=== PATIENT | female | born 1995 | race Caucasian/White ===

== ENCOUNTER 2017-04-29 00:23 | Emergency (ER) | payer SELFPAY ==
[2017-04-29 00:28] VITALS: BP 140/93
== END 2017-04-29 00:45 | disposition left against medical advice (07) ==
LOC: ED 00:23
DX: R19.7 Diarrhea, unspecified (principal); Z53.21 Procedure and treatment not carried out due to patient leaving prior to being seen by health care provider

== ENCOUNTER 2017-06-04 17:19 | Emergency (ER) | payer SELFPAY ==
[2017-06-04 18:03] VITALS: BP 120/70
--- NOTE | 2017-06-04 22:27 | Emergency Department Report ---
ED Female HPI - General Chief complaint: Urogenital-Female Stated complaint: VAGINAL PAIN Time Seen by Provider: 06/04/17 21:23 Source: patient Mode of arrival: Ambulatory Limitations: No Limitations - History of Present Illness Initial comments: This is a 21-year-old female presents to ED complaining of vulvar lesion and irritation 2 days. Patient states 2 days ago she noticed an ulcer type on her labia. Patient states that she can put some bacitracin ointment on it gently extended redder. She states also his slightly itching. She says that since her period 05 19 2017. She denies vaginal discharge, vaginal bleeding, vaginal reduction dysuria, fever, nausea vomiting. - Related Data Previous Rx's Medication Instructions Recorded Last Taken Type Bacitracin/Pramoxine/Aloe Vera 1 applicatio TP TID #1 tube 06/04/17 Unknown Rx [Bacitraycin Plus Ointment] Allergies Allergy/AdvReac Type Severity Reaction Status Date / Time No Known Allergies Allergy Unverified 04/29/17 00:33 ED Review of Systems ROS: Stated complaint: VAGINAL PAIN Other details as noted in HPI Constitutional: denies: chills, fever Eyes: denies: eye pain, eye discharge, vision change ENT: denies: ear pain, throat pain Respiratory: denies: cough, shortness of breath, wheezing Cardiovascular: denies: chest pain, palpitations Endocrine: no symptoms reported Gastrointestinal: denies: abdominal pain, nausea, diarrhea Genitourinary: denies: urgency, dysuria, discharge Musculoskeletal: denies: back pain, joint swelling, arthralgia Skin: denies: rash, lesions Neurological: denies: headache, weakness, paresthesias Psychiatric: denies: anxiety, depression Hematological/Lymphatic: denies: easy bleeding, easy bruising ED Past Medical Hx - Past Medical History Previous Medical History?: Yes Additional medical history: Vagina pain - Surgical History Past Surgical History?: No - Social History Smoking Status: Never Smoker Substance Use Type: None - Medications Home Medications: Home Medications Medication Instructions Recorded Confirmed Last Taken Type Bacitracin/Pramoxine/Aloe Vera 1 applicatio TP TID #1 tube 06/04/17 Unknown Rx [Bacitraycin Plus Ointment] ED Physical Exam - General Limitations: No Limitations General appearance: alert, in no apparent distress - Head Head exam: Present: atraumatic, normocephalic - Eye Eye exam: Present: normal appearance - ENT ENT exam: Present: mucous membranes moist - Neck Neck exam: Present: normal inspection - Respiratory Respiratory exam: Present: normal lung sounds bilaterally. Absent: respiratory distress - Cardiovascular Cardiovascular Exam: Present: regular rate, normal rhythm. Absent: systolic murmur, diastolic murmur, rubs, gallop - GI/Abdominal GI/Abdominal exam: Present: soft, normal bowel sounds - External exam: Present: lesions (on left labia majora, non bleeding, non ulcerative). Absent: erythema, swelling, lacerations, ecchymosis - Extremities Exam Extremities exam: Present: normal inspection - Back Exam Back exam: Present: normal inspection - Neurological Exam Neurological exam: Present: alert, oriented X3 - Psychiatric Psychiatric exam: Present: normal affect, normal mood - Skin Skin exam: Present: warm, dry, intact, normal color. Absent: rash ED Course Vital Signs 06/04/17 17:58 Temperature 98.9 F Pulse Rate 88 Respiratory 18 Rate Blood Pressure 120/70 O2 Sat by Pulse 100 Oximetry ED Medical Decision Making - Medical Decision Making 21-year-old female presents with a labia majora ulcer ED course: I discussed the patient cannot rule out herpes simplex virus Also discussed with patient that she could continue using the bacitracin if that works. I discussed the patient to follow up with production control clerk for STD screening. Patient did mention she did shave recently as well as used a remover product which may have caused her irritation Patient is in no acute distress vital signs are normal No other symptoms discharge, dysuria or any other problems. Critical care attestation.: If time is entered above; I have spent that time in minutes in the direct care of this critically ill patient, excluding procedure time. ED Disposition Clinical Impression: Labia irritation, Lesion of labia Disposition: DC-01 TO HOME OR SELFCARE Is pt being admited?: No Does the pt Need Aspirin: No Condition: Stable Instructions: Genital Herpes Simplex (ED), Vaginitis (ED) Additional Instructions: Make sure to follow up with the primary care physician as discussed. Take all your medications as you've been prescribed. If you have any worsening symptoms or develop new symptoms please return to ED immediately. Prescriptions: Bacitracin/Pramoxine/Aloe Vera [Bacitraycin Plus Ointment] 1 applicatio TP TID # 1 tube Referrals: PRIMARY CAREMD [Primary Care Provider] - 3-5 Days ASHLEY CAMARILLO MD [Referring] - 3-5 Days [facility] [Outside] - 3-5 Days Forms: Work/School Release Form(ED) Time of Disposition: 22:29
== END 2017-06-04 22:59 | disposition home or self-care (01) ==
LOC: ED 17:19
DX: N90.89 Other specified noninflammatory disorders of vulva and perineum (principal)
CPT/HCPCS: 99282

== ENCOUNTER 2017-06-07 23:03 | Emergency (ER) | payer SELFPAY | END 2017-06-08 02:39 | disposition left against medical advice (07) | LOC: ED 23:03 | DX: N89.8 Other specified noninflammatory disorders of vagina (principal); J02.9 Acute pharyngitis, unspecified; R10.9 Unspecified abdominal pain; Z53.21 Procedure and treatment not carried out due to patient leaving prior to being seen by health care provider | CPT/HCPCS: 87116; 87430 ==

== ENCOUNTER 2019-08-01 23:22 | Emergency (ER) | payer SELFPAY ==
[2019-08-01 23:51] VITALS: BP 135/71
[2019-08-02 00:19] LABS: Bacteria,Urine 1+ /HPF (Negative); Bilirubin,Urine NEG (Negative); Blood,Urine NEG (Negative); Color,Urine Yellow (Yellow); Mucus,Urine 1+ /HPF; Protein,Urine <15 mg/dL mg/dL (Negative); Urobilinogen,Urine < 2.0 mg/dL (<2.0)
[2019-08-02 00:21] LABS: HCG Qualitative,Urine Negative (Negative)
--- NOTE | 2019-08-02 01:19 | Emergency Department Report ---
Chief Complaint: Urogenital-Female Stated Complaint: FEVER Time Seen by Provider: 08/02/19 01:01 - HPI History of Present Illness: 24-year-old -[place] female patient presents with complaints of bumps on her tongue x today. She denies any pain, swelling of the tongue, throat pain, fever/chills/sweats, difficulty swallowing, or swollen glands in the neck. Patient also states she had a lesion on her vagina 2 weeks ago that has now resolved. She denies any pelvic pain, dysuria, hematuria, or vaginal discharge. - Exam Vital Signs: Vital Signs 08/01/19 23:38 Temperature 99.0 F Pulse Rate 130 H Respiratory 18 Rate Blood Pressure 135/71 O2 Sat by Pulse 100 Oximetry MSE screening note: Focused history and physical exam performed. Due to findings the following was ordered: ED Medical Decision Making - Medical Decision Making Patient here with complaints of bumps on the tongue that began today and a resolved vaginal lesion. She denies any further symptoms or pain. Minimal transient lingual papillitis noted on exam. She has no abdominal tenderness. Her vitals are normal. Patient is stable for discharge home and follow-up with a primary care provider. Patient provided with Dr. Marroquin's information. Strict return precautions were discussed in great detail with patient who verbalized understanding. ED Disposition for MSE Clinical Impression: Transient lingual papillitis Disposition: MED SCREENING EXAM-LEFT Is pt being admited?: No Condition: Stable Referrals: DIDI MARROQUIN MD [Staff Physician] - 3-5 Days ED Review of Systems ROS: Stated complaint: FEVER Other details as noted in HPI Constitutional: denies: chills, diaphoresis, fever, malaise, weakness ENT: denies: throat pain, dental pain Respiratory: denies: cough Endocrine: denies: excessive sweating Skin: denies: rash Neurological: denies: headache ED Physical Exam - General Limitations: No Limitations General appearance: alert, in no apparent distress, anxious - Head Head exam: Present: atraumatic, normocephalic - Eye Eye exam: Present: normal appearance. Absent: scleral icterus - ENT ENT exam: Present: mucous membranes moist, other (2 small inflamed papula noted on the right side of the tongue without any open lesions, erythema, or ulcerations) - Neck Neck exam: Present: full ROM. Absent: tenderness, lymphadenopathy - Respiratory Respiratory exam: Present: normal lung sounds bilaterally. Absent: respiratory distress - Cardiovascular Cardiovascular Exam: Present: regular rate, normal rhythm - GI/Abdominal GI/Abdominal exam: Absent: tenderness - Neurological Exam Neurological exam: Present: alert, oriented X3 - Psychiatric Psychiatric exam: Present: normal affect, anxious - Skin Skin exam: Present: warm, dry, intact, normal color. Absent: rash, cyanosis, diaphoretic, erythema, vesicles, petechiae, ecchymosis
== END 2019-08-02 01:30 | disposition left against medical advice (07) ==
LOC: ED 23:22
DX: K14.0 Glossitis (principal)
CPT/HCPCS: 81001; 81025; 99283